=== PATIENT | female | born 1945 | race American Indian/Alaskan Native ===

== ENCOUNTER 2018-05-01 09:58 | Outpatient (CLI) | payer MEDICARE ==
--- NOTE | 2018-05-04 10:45 | Magnetic Resonance Report ---
BILATERAL BREAST MRI WITHOUT AND WITH CONTRAST: 05/01/18 09:58:00 CLINICAL: Family history of breast cancer. COMPARISON:10/21/17 bilateral screening mammogram. TECHNIQUE: Axial 1.0-mm T1 without, axial high resolution 2.0-mm T2 and axial 1.0-mm dynamic Vibrant high-resolution postcontrast T1 fat saturation sequences on a 1.5 Susy magnet. The examination was performed with an 8 channel dedicated [place] breast coil. Post processing with CAD and subtraction was performed on an [employer] workstation. 17.0 cc of Multihance was injected without incident for the contrast portion of the exam. Consent was obtained prior to the administration of the contrast. FINDINGS: Right: Minimal background parenchymal enhancement. No mass or suspicious enhancement. No suspicious lymph nodes. Left: Minimal background parenchymal enhancement. No mass or suspicious enhancement. No suspicious lymph nodes. IMPRESSION: Normal study. Recommend routine mammographic screening. BI-RADS 1 - - Negative
== END 2018-05-01 09:59 | disposition home or self-care (01) ==
LOC: SPVIMAG 09:58
PROVIDERS: ATTEND Surgery
DX: Z03.89 Encounter for observation for other suspected diseases and conditions ruled out (principal); Z80.3 Family history of malignant neoplasm of breast
CPT/HCPCS: A9577; C8908; 77049

== ENCOUNTER 2019-11-21 12:52 | Outpatient (CLI) | payer MEDICARE ==
--- NOTE | 2019-11-21 16:39 | Magnetic Resonance Report ---
BILATERAL BREAST MRI WITH AND WITHOUT CONTRAST CLINICAL INFORMATION/INDICATION: Patient presents for high-risk screening breast MRI secondary to fam yuki history of breast cancer. TECHNICAL: Coronal STIR, axial T1 and T2-weighted fat sat images were obtained precontrast. Gadoliniu m-based contrast was injected intravenously and serial axial T1 weighted images with fat saturation w ere obtained. 3-D MIP projections, kinetic analysis and subtraction imaging was utilized to evaluate. A dedicated 8-channel breast coil was used for image acquisition. COMPARISON: Prior mammogram 10/26/2019 and breast MRI 05/01/2018 FINDINGS: Right breast: There is heterogeneously dense fibroglandular tissue. There is mild background parenchy mal enhancement. No suspicious areas of enhancement or architectural distortion identified in the rig ht breast. There is no right axillary or internal mammary adenopathy. Left breast: There is heterogeneously dense fibroglandular tissue. There is mild background parenchym al enhancement. No suspicious areas of enhancement or architectural distortion identified in the left breast. There is no left axillary or internal mammary adenopathy. Additional findings: There is suggestion of nodular enlargement of the left lobe of the thyroid. Ther e are several T2 hyperintense hepatic lesions, most compatible with cysts, unchanged from prior. IMPRESSION: 1. No suspicious MRI abnormality identified in either breast. 2. There is nodular enlargement of the left lobe of the thyroid. Consider dedicated thyroid ultrasoun d for further evaluation. 3. Unchanged probable hepatic cysts. Follow up recommendation: Back to schedule. BI-RADS Category 1: Negative. Signer Name: Deborah Bonilla MD Signed: 11/21/2019 4:34 PM Workstation Name: [id number]
== END 2019-11-21 12:53 | disposition home or self-care (01) ==
LOC: SPVIMAG 12:52
PROVIDERS: ATTEND Surgery
DX: N60.11 Diffuse cystic mastopathy of right breast (principal); N60.12 Diffuse cystic mastopathy of left breast; Z80.3 Family history of malignant neoplasm of breast
CPT/HCPCS: A9577; C8908; 77049

== ENCOUNTER 2020-11-20 10:55 | Outpatient (CLI) | payer MEDICARE ==
--- NOTE | 2020-11-20 17:33 | Mammography Report ---
DIGITAL SCREENING MAMMOGRAM WITH CAD, 11/20/2020 CLINICAL INFORMATION / INDICATION: Routine screening mammography. SCREENING MAMMOGRAM TECHNIQUE: Digital bilateral 2D mammography was obtained in the craniocaudal and mediolateral obliqu e projections. This examination was interpreted with the benefit of Computer-Aided Detection analysis . COMPARISON: October 26, 2019, October 23, 2018 and October 21, 2017 FINDINGS: Breast Density: There are scattered areas of fibroglandular density. No dominant mass, suspicious calcifications, or architectural distortion in either breast. IMPRESSION: No mammographic evidence of malignancy. Follow up recommendation: Routine yearly BI-RADS Category 1: Negative. A "normal" or negative report should not discourage follow up or biopsy of a clinically significant f inding. A written summary of these findings will be mailed to the patient. The patient will be entered into a mammography reporting system which will generate a reminder letter for the patient's next appointmen t at the appropriate interval. The [employer] recommends yearly mammograms starting at age 40 and continuing as l ari as a woman is in good health. Breast MRI is recommended for women with an approximate 20-25% or greater lifetime risk of breast cancer, including women with a strong family history of breast or ova niels cancer or who have been treated for Hodgkin's disease. Signer Name: Robert Villarreal DO Signed: 11/20/2020 5:28 PM Workstation Name: [id number]
== END 2020-11-20 10:56 | disposition home or self-care (01) ==
LOC: SPVWC 10:55
PROVIDERS: ATTEND Internal Medicine
DX: Z12.31 Encounter for screening mammogram for malignant neoplasm of breast (principal)
CPT/HCPCS: 77067